=== PATIENT | female | born 1985 | race Caucasian/White ===

== ENCOUNTER 2020-07-24 14:03 | Emergency (ER) | payer BC ==
--- NOTE | 2020-07-24 14:25 | ER ---
Nurse's Notes [facility] Name: Dulce Pradhan Age: 34 yrs Sex: Female : 1985 Arrival Date: 07/24/2020 Time: 14:05 Bed Waiting Private MD: Diagnosis: Presentation: 07/24 14:24 Note Sue registration states pt left a while ago. ca1 ED Course: 14:05 Patient arrived in ED. as 14:24 Patient's name was called from ER lobby. No response. Unable to locate patient. Will ca1 disposition as left without being seen by a provider. Administered Medications: No medications were administered Outcome: 14:25 Patient left the ED. ca1 Signatures: Sue Nevarez Cheryl RN RN ca1
== END 2020-07-24 14:25 | disposition left against medical advice (07) ==
LOC: ER 14:03
DX: Z02.9 Encounter for administrative examinations, unspecified (principal)